=== PATIENT | male | born 1960 | race Caucasian/White ===

== ENCOUNTER 2017-05-23 11:04 | Emergency (ER) | payer OTHER ==
--- NOTE | 2017-05-23 11:30 | EDPHY ---
H & P Time Seen by Provider: 05/23/17 11:30 Medical Decision Making ED Course/Re-evaluation: CHIEF COMPLAINT: HISTORY OF PRESENT ILLNESS: must have 4 elements: Location, Quality, Severity , Duration, Timing, Context, Modifying Factors, Associated Signs and Symptoms REVIEW OF SYSTEMS: A 10 point review of systems was performed and is negative with the exception of the elements mentioned in the history of present illness. PHYSICAL EXAM: HR, BP, O2 Sat, RR. Temp noted General Appearance: Alert, well hydrated, appropriate, and non-toxic appearing. Head: Atraumatic without scalp tenderness or obvious injury Eyes: Pupils equal, round, reactive to light and accommodation, EOMI, no trauma , no injection. Ears: Clear bilaterally, no perforation, normal landmarks Nose: Atraumatic, no rhinorrhea, clear. Throat: There is no erythema or exudates, no lesions, normal tonsils, mucus membranes moist. Neck: Supple, 2+ carotid upstroke, nontender, no lymphadenopathy. Respiratory: No retractions, no distress, no wheezes, and no accessory muscle use. Lungs are clear to auscultation bilaterally. Cardiovascular: Regular rate and rhythm, no murmurs, rubs, or gallops. Bilateral carotid, radial, dorsalis pedis, and posterior tibial pulses intact. Good capillary refill all extremities. Gastrointestinal: Abdomen is soft, nontender, non-distended, no masses, no rebound, no guarding, no peritoneal signs. Musculoskeletal: Normal active ROM of all extremities, atraumatic. Neurological: Alert, appropriate, and interactive. The patient has normal DTRs and non-focal cranial nerves, motor, sensory, and cerebellar exam. Skin: No rashes, good turgor, no nodules on palpation. Past medical history: Past surgical history: Family history: Social history: DIAGNOSTICS/PROCEDURES/CRITICAL CARE TIME: DIFFERENTIAL DIAGNOSIS: MEDICAL DECISION MAKING: Departure - Departure Referrals: Nakia Isaac MD [Primary Care Provider] - As per Instructions
[2017-05-23] MEDS ORDERED: PROPARACAINE 0.5% 15 ML OPHT DROP OP ONE (12:15)
[2017-05-23] MEDS ORDERED: FLUORESCEIN SODIUM 1 MG STRIP OP ONE (12:15)
[2017-05-23 12:24] VITALS: BP 138/88; PULSE 64; RESP 18; TEMP 98.6; O2SAT 93
--- NOTE | 2017-05-23 12:31 | EDPHY ---
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 This morning he awoke feeling bilateral IH tears ochoa, feel a sensation of sand in bilateral eyes. Visual acuity is slightly decreased. No history of corrective lens use. No exposure to high speed projectiles. PRIMARY CARE PROVIDER: Worker's compensation PHYSICAL EXAM (Prior to examination, patient consented to physical exam, hands were washed and my usual and customary physical exam procedures followed) 1) GENERAL: Well-developed, well-nourished, alert and oriented. Appears to be in no acute distress. 2) HEAD: Normocephalic 3) ENT: Nasopharynx oropharynx clear no lesions 4) LUNGS: Breathing comfortably. 5) SKIN: No facial or periorbital erythema, induration or lesions. [6) OCULAR EXAM: Visual Acuity: noted from Nurse's notes. Pupils:equal round and reactive to light EOMI Lids: no edema or swelling, upper and lower lids were everted and no foreign bodies were visualized, no areas of increased fluorescein uptake. Skin: no proptosis, no periorbital erythema or swelling, no vesicles, no pain with extraocular movements. Conjunctivae: not injected, no discharge, negative Irais test. Cornea: exam with fluorescein shows bilateral pitting appears of the cornea right greater than left Anterior chamber:normal, no hyphema or hypopyon Smoking Status: Never smoked Constitutional: Initial Vital Signs Temperature (C) 37 C 05/23/17 12:22 Heart Rate 64 05/23/17 12:22 Respiratory Rate 18 05/23/17 12:22 Blood Pressure 138/88 H 05/23/17 12:22 O2 Sat (%) 93 05/23/17 12:22 O2 Delivery Mode Room Air Allergies/Adverse Reactions: No Known Allergies Allergy (Unverified 05/23/17 12:22) Home Medications: Medication Instructions Recorded Levothyroxine 05/23/17 Loteprednol Etabonate [Lotemax] 2 drops OP BID #1 btl 05/23/17 MDM/Departure - [facility] ED Course/Re-evaluation: 12:29 p.m.: Suspect UV keratitis. Phone consultation with Dr. Jason Lewis on-call ophthalmology who recommends topical Lotemax twice daily for 5 days, recommends holding on antibiotics as the patient has no evidence of infection. Recommend follow up in office next week. Today is Friday of a long holiday weekend. Patient will follow up on Friday with Dr. Jason Lewis Ophthalmology. In the meantime patient has been given usual and customary ophthalmological precautions instructions, recommend using protective eyewear in the future. Care of patient under supervision of secondary supervising physician Dr Dos Santos with whom I discussed case. - Depart Disposition: Home, Routine, Self-Care Clinical Impression: UV keratitis Qualifiers: Laterality: bilateral Qualified Code(s): H16.133 - Photokeratitis, bilateral Condition: Good Instructions: Keratitis (ED), Corneal Flash Sweeney (ED) Prescriptions: Loteprednol Etabonate [Lotemax] 2 drops OP BID #1 btl Referrals: Jason Lewsi MD [Medical Doctor] - 05/27/17
== END 2017-05-23 12:50 | disposition home or self-care (01) ==
DX: H16.133 Photokeratitis, bilateral (principal)